=== PATIENT | male | born 1985 | race Caucasian/White ===

== ENCOUNTER 2017-04-20 20:13 | Emergency (ER) | payer OTHER ==
--- NOTE | 2017-04-20 20:17 | PDOC ---
History of Present Illness - General History Source: Patient Exam Limitations: No Limitations - History of Present Illness Initial Comments: 04/20/17 21:19 Patient is a 32 year old male with no significant past medical history who presents to the ED with complaints of chest pain that began a couple of days ago. Patient reports chest pain beginning 2 days ago suddenly while at home. He reports experiencing chronic cough 2 week ago that he described initially as a wet cough early on but developed into a dry cough. Patient states chest pain radiates to his left shoulder and shoulder blade. He reports chest pain to be a pressured pain localized on the left side. Patient reports experiencing intermittent episodes of SOB that began this afternoon. Denies fevers, chills. Denies vomiting. Denies any other symptoms. Allergies : None Surgical history: None Social history: Current smoker. No alcohol. No illicit drugs. PMD: Dr. Brody <Pop Warren - Last Filed: 04/20/17 21:19> - General History Source: Patient Exam Limitations: No Limitations - History of Present Illness Initial Comments: 04/20/17 22:08 Assessment and plan: This is a 32-year-old male who comes in complaining of some lightheadedness and palpitations with chest tightness. Patient had a cardiogram that showed a mild nonspecific intraventricular block with a QRS of 126 ms. Patient takes no medication and denies any cardiac risk factors with the exception of smoking. Patient's heart score is 3. Patient's chest x-ray was negative. Patient's troponin was negative. Patient discharged home and will follow-up with his primary care doctor. <Diomedes Bruno I - Last Filed: 04/20/17 22:10> - General Chief Complaint: Pain, Acute Stated Complaint: LIGHTHEADED/ CHEST PRESSURE Time Seen by Provider: 04/20/17 20:17 Past History <Pop Warren - Last Filed: 04/20/17 21:19> <Diomedes Bruno I - Last Filed: 04/20/17 22:10> - Past Medical History Allergies/Adverse Reactions: Allergies Allergy/AdvReac Type Severity Reaction Status Date / Time amoxicillin trihydrate Allergy Verified 04/20/17 20:15 [From Augmentin] potassium clavulanate Allergy Verified 04/20/17 20:15 [From Augmentin] Home Medications: Ambulatory Orders NK [No Known Home Medication] 04/20/17 Review of Systems - Review of Systems Able to Perform ROS?: Yes Comments:: 04/20/17 21:19 General: No fevers or chills, no weakness, no weight loss HEENT: No change in vision. No sore throat, No ear pain CardioVascular: +Chest pain. +SOB. Respiratory:+Cough. No wheezing. Gastrointestinal: no nausea, vomiting, diarrhea or constipation, No rectal bleeding Genitourinary: No dysuria, hematuria, or frequency Musculoskeletal: No joint or muscle pain or swelling Neurologic: No headache, vertigo, dizziness or loss of consciousness Psychiatric: nor depression Skin: No rashes or easy bruising Endocrine: no increased thirst or abnormal weight change Allergic: no skin or latex allergy All other systems reviewed and normal All Other Systems: Reviewed and Negative <Pop Warren - Last Filed: 04/20/17 21:19> *Physical Exam - Physical Exam Comments: 04/20/17 21:20 General: Well-nourished well-developed individual, no acute distress HEENT: Throat: Normal, tonsils normal, no erythema or exudate Neck: Supple, no meningeal signs, no lymphadenopathy Eyes::Pupils equal reactive and round, extraocular motion intact Chest: Nontender to palpation Cardiac: S1-S2 normal, regular rate and rhythm, no murmurs rubs or gallops Respiratory: Lungs clear to auscultation bilateral Abdomen: Soft, nondistended, normal bowel sounds, nontender to palpation diffusely Extremities: Warm, dry, no cyanosis, clubbing, or edema Skin: No rashes <Pop Warren - Last Filed: 04/20/17 21:19> Heart Score/ECG Review - History History: Slightly suspicious - Electrocardiogram EKG: Non specific repolarization disturbance - Age Age: </= 44 - Risk Factors Risk Factors Heart Score: Yes Smoking History Based on the list above the patient has:: 1-2 risk factors - Troponin Troponin: </= normal limit - Score Heart Score - Total: 2 <Diomedes Bruno I - Last Filed: 04/20/17 22:10> *DC/Admit/Observation/Transfer - Attestations Scribe Attestion: 04/20/17 21:20 Documentation prepared by Pop Warren, acting as medical language specialist for Diomedes Bruno MD/DO. <Pop Warren - Last Filed: 04/20/17 21:19> - Discharge Dispostion Admit: No <Diomedes Bruno I - Last Filed: 04/20/17 22:10> Diagnosis at time of Disposition: Atypical chest pain - Discharge Dispostion Disposition: HOME Condition at time of disposition: Stable - Referrals Referrals: Amari Brody [Primary Care Provider] - - Patient Instructions Printed Discharge Instructions: Smoking Cessation Additional Instructions: If symptoms persist follow-up with your primary care doctor this week if possible Return to the emergency department immediately with ANY new, persistent or worsening symptoms. Continue any medications as previously prescribed by your physician. You should follow up with your primary doctor as soon as possible regarding today's emergency department visit. . Please make sure your doctor reviews the results of your emergency evaluation. Thank you for coming to the Emergency Department today for your care. It was a pleasure to see you today. Please note that your evaluation is INCOMPLETE until you follow-up with your doctor.
[2017-04-20 21:38] LABS: CPK 96 IU/L (39-308)
[2017-04-20 21:48] LABS: TROPONIN I (DFP) < 0.03 ng/ml (0.03-0.50)
--- NOTE | 2017-04-21 07:24 | EKG ---
Test Reason : Blood Pressure : / mmHG Vent. Rate : 089 BPM Atrial Rate : 089 BPM P-R Int : 148 ms QRS Dur : 126 ms QT Int : 374 ms P-R-T Axes : 074 074 034 degrees QTc Int : 455 ms NORMAL SINUS RHYTHM RIGHT BUNDLE BRANCH BLOCK NONSPECIFIC T WAVE ABNORMALITY ABNORMAL ECG NO PREVIOUS ECGS AVAILABLE Confirmed by NORMAN ROSALES MD ([id number]) on 04/21/2017 7:24:03 AM Referred By: DR CASTREJON Confirmed By:NORMAN ROSALES MD
== END 2017-04-20 22:15 | disposition home or self-care (01) ==
LOC: FER 20:13
DX: R07.89 Other chest pain (principal)
CPT/HCPCS: 36415; 71020-TC; 82550; 84484; 93005; 99281-25